=== PATIENT | male | born 1970 | race Caucasian/White ===

== ENCOUNTER 2025-03-18 09:38 | Inpatient (IN) | payer OTHER, SELFPAY ==
[2025-03-18] VITALS (22 sets, daily range): BP systolic 95–157; BP diastolic 52–94; PULSE 60–99; RESP 11–20; TEMP 36.6–37.4; O2SAT 92–100; BMI 39.2
--- NOTE | ~2025-03-18 | CT_ITS ---
CT of the Abdomen and Pelvis: Indication: Abdominal pain, history of Crohn's disease Technique: 2.5 mm axial scans were obtained through the abdomen and pelvis following intravenous adm inistration of 100 cc of Omnipaque 350. Dose reduction technique was used on this scan by utilizing a utomated exposure control and iterative reconstruction technique. The dose-length product (DLP) was 1 277.72 mGy-cm. Findings: Scans through the lung bases are unremarkable. The liver, spleen, pancreas, gallbladder, adrenals and right kidney are within normal limits. 7 mm no nobstructing left renal stone present. No evidence of aortic aneurysm. No lymphadenopathy. There is apparent intussusception of the base of the appendix into the cecum. No definite acute infla mmatory changes otherwise. No abscess or free air. There is apparent mild wall thickening of the intu ssuscepted appendix, and early appendicitis is a potential consideration. Images through the pelvis were performed. Urinary bladder unremarkable. No pelvic mass seen. No ascit es. Impression: Intussusception of the appendix into the base of the cecum. Suggestion of mild wall thickening of the intussuscepted appendix, and concomitant/superimposed early appendicitis is a potential consideratio n. 7 mm nonobstructing left renal stone. Reviewed, dictated and finalized at location . Impression: Intussusception of the appendix into the base of the cecum. Suggestion of mild wall thickening of the intussuscepted appendix, and concomitant/superimposed ea rly appendicitis is a potential consideration. 7 mm nonobstructing left renal stone.
[2025-03-18 10:56] LABS: Basophils Absolute Auto 0.1 K/mm3 (0.0-0.1); Basophils Percent Auto 0.4 % (0.2-1.2); Eosinophils Absolute Auto 0.3 K/mm3 (0-0.3); Eosinophils Percent Auto 2.1 % (0-4.4); Hematocrit 45.6 % (42.0-52.0); Hemoglobin 14.8 g/dL (14.0-18.0); Immature Granulocyte Absolute 0.08 K/mm3 (0.00-0.031); Immature Granulocyte Percent A 0.5 % (0-0.5); Lymphocytes Absolute Auto 1.88 K/mm3 (0.9-3.2); Mean Corpuscular HGB Conc 32.5 g/dl (32-36); Mean Corpuscular Hemoglobin 30.5 pg (26-34); Mean Platelet Volume 10.6 fl (7.4-10.4); Monocytes Absolute Auto 1.7 K/mm3 (0.1-0.6); Monocytes Percent Auto 10.5 % (2.6-8.5); Neutrophils Absolute Auto 11.7 K/mm3 (1.3-6.7); Neutrophils Percent Auto 74.5 % (45.5-73.1); Platelet Count Result 242 k/mm3 (150-375); Red Blood Count 4.85 M/mm3 (4.6-6.20); Red Cell Distribution Width 13.2 % (11.5-14.5); White Blood Count 15.7 K/mm3 (4.5-10.0)
[2025-03-18 10:59] LABS: Add Urine Microscopic? NO; Appearance Urine Clear (Clear); Bilirubin Urine Negative (Negative); Blood Urine Negative (Negative); Color Urine Yellow (Yellow); Glucose Urine UA Negative (Negative); Ketones Urine Negative (Negative); Leukocyte Esterase Ur Negative LEU/UL (Negative); Nitrate Urine Negative (Negative); Protein Urine Negative (Negative); Specific Grav Ur 1.021 (1.001-1.035); Urobilinogen Urine 0.2 mg/dL (<2.0)
[2025-03-18 11:05] LABS: Alanine Aminotransferase 26 U/L (6-50); Albumin Level 4.4 g/dL (3.5-5.1); Alkaline Phosphatase 69 U/L (38-126); Anion Gap 6 mmol/L (4-12); Aspartate Amino Transferase 30 U/L (17-59); Bilirubin,Total 0.7 mg/dL (0.2-1.3); Blood Urea Nitrogen 15 mg/dL (9-20); Carbon Dioxide 27 mmol/L (22-30); Chloride 107 mmol/L (98-107); Estimated CRCL calculation 100 ml/min; Estimated Glomerular Filt Rate > 60; Glucose 96 mg/dL (65-110); Lipase 94 U/L (23-300); Sodium 140 mmol/L (137-145)
--- OUTSIDE RECORDS SUMMARY | 2025-03-18 11:24 | XMS_ITS | Patient Health Record ---
Author Organization [facility] Kylie es Billing Info Address [address] [place], [place] [address] Support Name Relationship Address Phone Derrek Dior Guarantor Unknown [phone] Reason For Referral No Information Plan Of Treatment No Information Insurance Providers Payer Name Payer Address Payer Phone Subscriber Number Group Number Insured Name Patient Relationship to Insured Coverage Start Date Coverage End Date [employer] NON HMO [address] [place], [place] [id number] Derrek Dior Self - patient is the insured 7 7 [employer] NON HMO [address] [address] [place], [place] [id number] Derrek Dior Self - patient is the insured 7 7
--- NOTE | 2025-03-18 12:36 | ED_ITS ---
HPI - Abdominal Pain General Chief Complaint: Abdominal Pain <SUNSHINE Wooten Last Filed: 03/18/25 15:42> Stated Complaint: abd pain <SUNSHINE Wooten Last Filed: 03/18/25 15:42> Time Seen by Provider: 03/18/25 10:51 <SUNSHINE Wooten Last Filed: 03/18/25 15:42> Source: patient <SUNSHINE Wooten Last Filed: 03/18/25 15:42> Mode of arrival: ambulatory <SUNSHINE Wooten Filed: 03/18/25 15:42> Limitations: no limitations <SUNSHINE Wooten Last Filed: 03/18/25 15:42> History of Present Illness HPI narrative: Patient is a 54-year-old male who presents the ED with report of abdominal pain. Patient reports he woke up this morning with mid to upper abdominal pain. States pain was intermittent, but fairly severe this morning. Thought he needed to have a bowel movement, and was able to have a bowel movement, which was normal. Denies rectal bleeding or melena. Pain persisted throughout the day today. He notes history of Crohn's disease and contacted his doctor and was referred to the ED for further evaluation. He is not currently on any medication for his Crohns, states it is typically well controlled. He does mention his doctor previously thought there may be something abnormal with his appendix and was referred for an outpatient CT scan. Patient reports some intermittent nausea, denies vomiting. Denies fevers. Denies history of similar pain. Has not taken anything for pain. Denies chest pain or shortness of breath. Patient is currently visiting from [facility]. <SUNSHINE Wooten Last Filed: 03/18/25 15:42> Related Data Home Medications: Home Medications ?Medication ?Instructions ?Recorded ?Confirmed ?Last Taken ?Type lisinopril 20 mg tablet 20 mg PO HS 03/18/25 03/18/25 03/17/25 History <SUNSHINE Wooten Last Filed: 03/18/25 15:42> Allergies/Adverse Reactions: Allergies Allergy/AdvReac Type Severity Reaction Status Date / Time Penicillins Allergy Severe Anaphylaxis Verified 03/18/25 15:39 <Amanda Valentino PA-C - Last Filed: 03/18/25 15:42> Review of Systems 2 Review of Systems: All systems reviewed & are unremarkable except as noted in HPI. <Amanda Valentino PA-C - Last Filed: 03/18/25 15:42> All systems reviewed & are unremarkable except as noted in HPI and below < Amanda Valentino PA-C - Last Filed: 03/18/25 15:42> [facility] Past Medical History Medical History: Medical History (Updated 03/18/25 @ 16:13 by Jonathan Mcdonald MD) HTN (hypertension) Obesity History of Crohn's disease <Amanda Valentino PA-C - Last Filed: 03/18/25 15:42> Surgical History Surgical History: Surgical History History of colonoscopy With polypectomy. Most recent colonoscopy in January of 2025 in [place]. <Amanda Valentino PA-C - Last Filed: 03/18/25 15:42> Social History Social History: Social History Smoking status: Current some day smoker Tobacco type: cigars Alcohol intake: current Drinks per week: 3 Substance use: never Do You Feel Safe in your Home?: Yes Lack of Transportation: No Lack of Food: Never True Current Housing: I Have Housing Concerned About Future Housing: No Difficulty Paying Gas/Electric Bills: No Difficulty Paying for Meds: No Currently Unemployed: No Education: High School Diploma/GED Difficulty w/ Childcare or Family Care: No Spiritual care concerns: No <SUNSHINE Wooten Last Filed: 03/18/25 15:42> Exam 2 Narrative: GENERAL: Well appearing, obese with BMI of 39.2, non-toxic, in no acute distress. HEAD: Normocephalic, atraumatic. RESPIRATORY: Airway patent, respirations nonlabored. Clear to auscultation bilaterally, no rales, rhonchi, wheezing. CARDIOVASCULAR: Regular rate and rhythm without murmurs, rubs, or gallops. ABDOMINAL: Soft, mild tenderness palpation periumbilical region, epigastric region, right lower quadrant, nondistended. Normoactive BS. MUSCULOSKELETAL: Moves all extremities. No gross deformities. SKIN: Warm, dry, normal color. NEURO: A&O X3. Speech clear. PSYCHIATRIC: Appropriate mood and affect. Normal interaction. <Amanda Valentino PA-C - Last Filed: 03/18/25 15:42> Course LABORER/GRADE CHECK/PA Physician Supervision This visit was performed by both a physician and an APC. I performed all aspects of the MDM as documented. <Zheng Forte MD - Last Filed: 03/18/25 22:16> Vital Signs Vital signs: Vital Signs Temperature 97.8 F 03/18/25 09:44 Pulse Rate 86 03/18/25 09:44 Respiratory Rate 15 03/18/25 09:44 Blood Pressure 157/87 H 03/18/25 09:44 Pulse Oximetry 99 03/18/25 09:44 Oxygen Delivery Room Air 03/18/25 09:44 Temperature 97.9 F 03/18/25 21:47 Pulse Rate 64 03/18/25 21:47 Respiratory Rate 20 03/18/25 21:47 Blood Pressure 115/58 L 03/18/25 21:47 Pulse Oximetry 100 03/18/25 21:47 Oxygen Delivery Nasal Cannula 03/18/25 20:35 Oxygen Flow Rate 3 03/18/25 20:35 <Amanda Valentino PA-C - Last Filed: 03/18/25 15:42> Vital Signs Temperature 97.8 F 03/18/25 09:44 Pulse Rate 86 03/18/25 09:44 Respiratory Rate 15 03/18/25 09:44 Blood Pressure 157/87 H 03/18/25 09:44 Pulse Oximetry 99 03/18/25 09:44 Oxygen Delivery Room Air 03/18/25 09:44 Temperature 97.9 F 03/18/25 21:47 Pulse Rate 64 03/18/25 21:47 Respiratory Rate 20 03/18/25 21:47 Blood Pressure 115/58 L 03/18/25 21:47 Pulse Oximetry 100 03/18/25 21:47 Oxygen Delivery Nasal Cannula 03/18/25 20:35 Oxygen Flow Rate 3 03/18/25 20:35 <Zheng Forte MD - Last Filed: 03/18/25 22:16> MDM - Abdominal Pain MDM Narrative Medical decision making narrative: Patient presented to ED with mid to upper abdominal pain that began this morning. History of Crohn's disease. Vital signs are stable upon arrival. Patient in no acute distress. He did not want anything for pain after my initial evaluation. CBC with white blood cell count of 15.7. Neutrophil predominance. No bandemia. CMP is unremarkable. Normal electrolytes, kidney function, liver function. UA is clear. CT scan of abdomen/pelvis was obtained and showing intussusception of appendix into cecum. Possibly concomitant superimposed early appendicitis. Discussed case with Dr. Arriola, general surgery, advised will likely need appendectomy. Will have Lindsay LABORER/GRADE CHECK come down to see patient, likely surgery this afternoon. Keep NPO. Lindsay in ED to see patient. Patient to go to the OR. He is in agreement this plan. I did reach out to patient's GI specialist in [place], Dr. Randall, spoke to office, advised up patient's care plan. Patient given fluids, cefepime, Flagyl in the ED. <Amanda Valentino PA-C - Last Filed: 03/18/25 15:42> Medical Records Attestation: I reviewed the patient's medical records. <Amanda Valentino PA-C - Last Filed: 03/18/25 15:42> Lab Data Attestation: I reviewed the patient's lab results. <Amanda Valentino PA-C - Last Filed: 03/18/25 15:42> Result diagrams: 03/18/25 10:42 03/18/25 10:42 <SUNSHINE Wooten Last Filed: 03/18/25 15:42> Labs: Lab Results 03/18/25 Range/Units 10:42 WBC 15.7 H (4.5-10.0) K/mm3 RBC 4.85 (4.6-6.20) M/mm3 Hgb 14.8 (14.0-18.0) g/dL Hct 45.6 (42.0-52.0) % MCV 94.0 (80-100) fl MCH 30.5 (26-34) pg MCHC 32.5 (32-36) g/dl RDW 13.2 (11.5-14.5) % Plt Count 242 (150-375) k/mm3 MPV 10.6 H (7.4-10.4) fl Immature Gran % (Auto) 0.5 (0-0.5) % Neut % (Auto) 74.5 H (45.5-73.1) % Lymph % (Auto) 12.0 L (18.3-44.2) % [place] % (Auto) 10.5 H (2.6-8.5) % Eos % (Auto) 2.1 (0-4.4) % Baso % (Auto) 0.4 (0.2-1.2) % Lymph # (Auto) 1.88 (0.9-3.2) K/mm3 [place] # (Auto) 1.7 H (0.1-0.6) K/mm3 Eos # (Auto) 0.3 (0-0.3) K/mm3 Baso # (Auto) 0.1 (0.0-0.1) K/mm3 Abs Immat Gran (auto) 0.08 H (0.00-0.031) K/mm3 Absolute Neuts (auto) 11.7 H (1.3-6.7) K/mm3 Absolute Nucleated RBC 0.000 (0.0-0.012) K/mm3 Nucleated RBC % 0.0 (0.0-0.2) % Sodium 140 (137-145) mmol/L Potassium 4.0 (3.4-5.0) mmol/L Chloride 107 (98-107) mmol/L Carbon Dioxide 27 (22-30) mmol/L Anion Gap 6 (4-12) mmol/L BUN 15 (9-20) mg/dL Creatinine 0.98 (0.7-1.3) mg/dL Estim Creat Clear Calc 100 ml/min Estimated GFR > 60 (59 - ) Glucose 96 (65-110) mg/dL Calcium 9.0 (8.4-10.2) mg/dL Total Bilirubin 0.7 (0.2-1.3) mg/dL AST 30 (17-59) U/L ALT 26 (6-50) U/L Alkaline Phosphatase 69 (38-126) U/L Total Protein 8.0 (6.3-8.2) g/dL Albumin 4.4 (3.5-5.1) g/dL Lipase 94 (23-300) U/L Urine Color Yellow (Yellow) Urine Appearance Clear (Clear) Urine pH 8.0 (5.0-9.0) Ur Specific [place] 1.021 (1.001-1.035) Urine Protein Negative (Negative) mg/dL Urine Glucose (UA) Negative (Negative) mg/dL Urine Ketones Negative (Negative) mg/dL Ur Blood (Man) Negative (Negative) Urine Nitrate Negative (Negative) Urine Bilirubin Negative (Negative) Urine Urobilinogen 0.2 (<2.0) mg/dL Leukocyte Esterase Rfl Negative (Negative) HANNAH/UL <Amanda Valentino PA-C - Last Filed: 03/18/25 15:42> Lab Results 03/18/25 Range/Units 10:42 WBC 15.7 H (4.5-10.0) K/mm3 RBC 4.85 (4.6-6.20) M/mm3 Hgb 14.8 (14.0-18.0) g/dL Hct 45.6 (42.0-52.0) % MCV 94.0 (80-100) fl MCH 30.5 (26-34) pg MCHC 32.5 (32-36) g/dl RDW 13.2 (11.5-14.5) % Plt Count 242 (150-375) k/mm3 MPV 10.6 H (7.4-10.4) fl Immature Gran % (Auto) 0.5 (0-0.5) % Neut % (Auto) 74.5 H (45.5-73.1) % Lymph % (Auto) 12.0 L (18.3-44.2) % [place] % (Auto) 10.5 H (2.6-8.5) % Eos % (Auto) 2.1 (0-4.4) % Baso % (Auto) 0.4 (0.2-1.2) % Lymph # (Auto) 1.88 (0.9-3.2) K/mm3 [place] # (Auto) 1.7 H (0.1-0.6) K/mm3 Eos # (Auto) 0.3 (0-0.3) K/mm3 Baso # (Auto) 0.1 (0.0-0.1) K/mm3 Abs Immat Gran (auto) 0.08 H (0.00-0.031) K/mm3 Absolute Neuts (auto) 11.7 H (1.3-6.7) K/mm3 Absolute Nucleated RBC 0.000 (0.0-0.012) K/mm3 Nucleated RBC % 0.0 (0.0-0.2) % Sodium 140 (137-145) mmol/L Potassium 4.0 (3.4-5.0) mmol/L Chloride 107 (98-107) mmol/L Carbon Dioxide 27 (22-30) mmol/L Anion Gap 6 (4-12) mmol/L BUN 15 (9-20) mg/dL Creatinine 0.98 (0.7-1.3) mg/dL Estim Creat Clear Calc 100 ml/min Estimated GFR > 60 (59 - ) Glucose 96 (65-110) mg/dL Calcium 9.0 (8.4-10.2) mg/dL Total Bilirubin 0.7 (0.2-1.3) mg/dL AST 30 (17-59) U/L ALT 26 (6-50) U/L Alkaline Phosphatase 69 (38-126) U/L Total Protein 8.0 (6.3-8.2) g/dL Albumin 4.4 (3.5-5.1) g/dL Lipase 94 (23-300) U/L Urine Color Yellow (Yellow) Urine Appearance Clear (Clear) Urine pH 8.0 (5.0-9.0) Ur Specific [place] 1.021 (1.001-1.035) Urine Protein Negative (Negative) mg/dL Urine Glucose (UA) Negative (Negative) mg/dL Urine Ketones Negative (Negative) mg/dL Ur Blood (Man) Negative (Negative) Urine Nitrate Negative (Negative) Urine Bilirubin Negative (Negative) Urine Urobilinogen 0.2 (<2.0) mg/dL Leukocyte Esterase Rfl Negative (Negative) HANNAH/UL <Zheng Forte MD - Last Filed: 03/18/25 22:16> Imaging Data Attestation: I personally reviewed and interpreted this imaging study as follows: < Amanda Valentino PA-C - Last Filed: 03/18/25 15:42> Radiologist's impression: ITS Impressions Abdomen/Pelvis CT 03/18/25 13:02 Impression: Intussusception of the appendix into the base of the cecum. Suggestion of mild wall thickening of the intussuscepted appendix, and concomitant/superimposed early appendicitis is a potential consideration. 7 mm nonobstructing left renal stone. <Amanda Valentino PA-C - Last Filed: 03/18/25 15:42> ITS Impressions Abdomen/Pelvis CT 03/18/25 13:02 Impression: Intussusception of the appendix into the base of the cecum. Suggestion of mild wall thickening of the intussuscepted appendix, and concomitant/superimposed early appendicitis is a potential consideration. 7 mm nonobstructing left renal stone. <Zheng Forte MD - Last Filed: 03/18/25 22:16> Discharge Plan Discharge Clinical Impression: Intussusception of appendix, History of Crohn's disease Acute appendicitis Qualifiers: Acute appendicitis type: with localized peritonitis Appendicitis gangrene presence: without gangrene Appendicitis perforation presence: without perforation Appendicitis abscess presence: without abscess Qualified Code(s): K 35.30 - Acute appendicitis with localized peritonitis, without perforation or gangrene <SUNSHINE Wooten Last Filed: 03/18/25 15:42> Patient Disposition: Still a Patient <SUNSHINE Wooten Last Filed: 03/18/25 15:42> Condition: Stable <Amanda Valentino PA-C - Last Filed: 03/18/25 15:42>
--- NOTE | 2025-03-18 14:37 | PC.NURSE ---
per EDP no blood cultures are needed
[2025-03-18] MEDS: SODIUM CHLORIDE 0.9% IV 1,000 ML 999 ML IV CONT (14:39)
[2025-03-18] MEDS: CEFEPIME 2 GM/NS 50 ML 2 GM/50 ML BAG IVPB (14:40)
--- NOTE | 2025-03-18 14:49 | PM.IMHP ---
H&P: HPI History of Present Illness Date/Time: 03/18/25 14:49 Chief Complaint: Upper abdominal pain Narrative: This is a 54-year-old male with history of Crohn's disease, who presented to the ED today with complaints of mid upper abdominal pain. He reports waking up this morning with the pain. He had a BM and there was no relief of his pain. He ate some oatmeal, which did not aggravate or alleviate his pain. The pain would come and go in waves. Bending over and movement of his torso would aggravate the pain, as well as hitting bumps on the way to the ER. He denies nausea, vomiting, diarrhea, fever, or chills. His pain migrated to the periumbilical area throughout the day. Due to his persistent pain, he came into the ED for evaluation. Workup in the ED showed WBC count of 15,[address] evidence of intussusception of the appendix into the base of the cecum, suggestion of mild wall thickening of the into suspected appendix and possible superimposed early appendicitis. He is now seen in the ED for surgical evaluation. To note the patient has a history of Crohn's disease, which has been treated in [facility] and [place]. He currently follows with a furniture repair technician in [place] and has had multiple colonoscopies in the past with the most recent being in January of 2025. He reports being told there was an abnormality of his appendix since 2019 and each colonoscopy they mention this to him. His colonoscopy last month, they recommended getting a CT scan of the abdomen and pelvis as an outpatient, but has not had time to get the scan as of yet. He travels for work and is actually in this location due to work, but resides in [facility]. No previous abdominal surgery. He is not currently on any medications for his Crohn's disease. He reports being in remission. Review of Systems Review of Systems: All systems reviewed & are unremarkable except as noted in HPI and below PMFSH Past Medical History Medical History History of Crohn's disease Surgical History Surgical History History of colonoscopy With polypectomy. Most recent colonoscopy in January of 2025 in [place]. Social History Social History Smoking status: Never smoker Alcohol intake: never Substance use: never Meds Home Medications and Allergies Allergies Allergy/AdvReac Type Severity Reaction Status Date / Time Penicillins Allergy Anaphylaxis Verified 03/18/25 09:48 Vital Signs Vital Signs - 24 hr 03/18/25 09:44 03/18/25 11:12 03/18/25 11:13 Temperature 97.8 F Pulse Rate 86 83 87 Respiratory Rate 15 18 20 Blood Pressure 157/87 H 138/87 138/87 Pulse Oximetry 99 100 98 Oxygen Delivery Room Air 03/18/25 11:31 03/18/25 12:01 03/18/25 12:31 Temperature Pulse Rate 76 84 79 Respiratory Rate 16 20 18 Blood Pressure 128/85 126/89 136/85 Pulse Oximetry 98 98 98 Oxygen Delivery 03/18/25 13:14 03/18/25 13:30 03/18/25 13:31 Temperature Pulse Rate 63 90 88 Respiratory Rate 15 18 20 Blood Pressure 142/84 H 135/94 H 135/94 H Pulse Oximetry 98 99 95 Oxygen Delivery 03/18/25 14:00 03/18/25 14:31 Temperature Pulse Rate 91 99 Respiratory Rate 17 19 Blood Pressure 144/89 H 140/89 Pulse Oximetry 99 98 Oxygen Delivery Exam Const: General: comfortable and no acute distress Nutritional Appearance: average body habitus Orientation/consciousness: patient oriented x3 HENMT: Head: normocephalic and atraumatic Ears: hearing grossly normal bilaterally Mouth: Yes moist mucous membranes Eyes: General: appearance normal, both eyes and all related structures Pupils: Equal, round and reactive pupils present Neck: Neck: normal visual inspection and full ROM Resp: Effort & Inspection: no respiratory distress Auscultation: clear to auscultation bilaterally Cardio: Rate: regular rate Rhythm: regular rhythm Peripheral pulses: Peripheral pulses 2+ throughout GI: Inspection: non-distended and no scars GI Palp: Yes Soft to palpation, Yes Tenderness to palpation present (GI) (Mild RLQ TTP, focally tender in mid upper abd/RUQ), Yes Guarding due to palpation present (GI) (voluntary guarding with palpation of mid upper abdomen), Yes No hepatosplenomegaly present, No Hernia present and No Rebound tenderness present Auscultation: normal bowel sounds Skin: General skin exam: normal color Neuro: General: moves all extremities and no focal motor deficits Speech: normal speech Motor exam (neuro): 5/5 motor strength present throughout Extrem: General: normal to inspection and no edema Psych: Mental Status: mental status grossly normal Attitude: cooperative Insight: Good insight present (Psych) Judgement: Good judgement present (Psych) H&P: Results Labs Labs: Short CBC 03/18/25 Range/Units 10:42 WBC 15.7 H (4.5-10.0) K/mm3 Hgb 14.8 (14.0-18.0) g/dL Hct 45.6 (42.0-52.0) % Plt Count 242 (150-375) k/mm3 BMP 03/18/25 10:42 Sodium 140 Potassium 4.0 Chloride 107 Carbon Dioxide 27 BUN 15 Creatinine 0.98 Glucose 96 Calcium 9.0 Liver Function 03/18/25 Range/Units 10:42 Total Bilirubin 0.7 (0.2-1.3) mg/dL AST 30 (17-59) U/L ALT 26 (6-50) U/L Alkaline Phosphatase 69 (38-126) U/L Albumin 4.4 (3.5-5.1) g/dL Urine 03/18/25 Range/Units 10:42 Urine Color Yellow (Yellow) Urine Appearance Clear (Clear) Urine pH 8.0 (5.0-9.0) Ur Specific [place] 1.021 (1.001-1.035) Urine Protein Negative (Negative) mg/dL Urine Glucose (UA) Negative (Negative) mg/dL Imaging CT scan - abdomen: Radiologist's impression: ITS Impressions Abdomen/Pelvis CT 03/18/25 13:02 Impression: Intussusception of the appendix into the base of the cecum. Suggestion of mild wall thickening of the intussuscepted appendix, and concomitant/superimposed early appendicitis is a potential consideration. 7 mm nonobstructing left renal stone. Assessment and Plan Assessment and plan (1) Intussusception of appendix: Code(s): K38.8 - Other specified diseases of appendix Status: Acute Assessment and Plan: CT scan of the abdomen and pelvis reviewed with Dr. Arriola. There appears to be an intussusception of the appendix, which is dilated with mild wall thickening, consistent with possible early acute appendicitis. He is more tender in the mid to right upper abdomen, but this correlates with the location of the appendix within the cecum on the CT scan. His WBC count is 15,000. We would recommend proceeding with a laparoscopic appendectomy, partial cecectomy by Dr. Arriola under general anesthesia. Description of the procedure, risks, benefits, alternatives, and expected recovery were discussed with the patient in detail. He agrees to proceed. Continue IV antibiotics, IV fluids, and will schedule for surgery today. (2) Acute appendicitis: Code(s): K35.80 - Unspecified acute appendicitis Status: Acute Plan I have discussed the patient's case and plan of care with Dr. Arriola.
[2025-03-18] MEDS: metroNIDAZOLE 500 MG/ISO 100ML 500 MG/100 ML BAG 100 MG IVPB (15:00)
--- NOTE | 2025-03-18 15:40 | WPDHPUPDATE1 ---
History and Physical Update Update Date/Time: 03/18/25 15:40 History and Physical has been reviewed, including an updated exam of the patient. There are NO changes in the patient's condition. Risks, benefits, and alternatives have been discussed and questions answered. Patient agrees to proceed with procedure.
[2025-03-18] MEDS: LACTATED RINGERS 1,000 ML 30 ML IV CONT ×2 (16:00→19:35)
--- NOTE | 2025-03-18 16:13 | WPDANESEPPF ---
Anes - Initial Pre Proc Eval Procedure: Operation Date: 03/18/25 16:30 Proposed Procedures p Laparoscopic Appendectomy - Greyson Arriola MD Date/Time: 03/18/25 16:13 Surgeon: Greyson Arriola MD Pre Op Diagnosis: abd pain Patient Data Age: 54 Gender: M Height: 1.75 m Weight: 120.5 kg Last Vital Signs Temp 37.4 C 03/18/25 15:35 Pulse 89 03/18/25 15:35 Resp 20 03/18/25 15:35 BP 135/91 H 03/18/25 15:35 Pulse Ox 99 03/18/25 15:35 O2 Del Method Room Air 03/18/25 15:35 Allergies Allergy/AdvReac Type Severity Reaction Status Date / Time Penicillins Allergy Severe Anaphylaxis Verified 03/18/25 15:39 Home Medications ?Medication ?Instructions ?Recorded ?Confirmed ?Type lisinopril 20 mg tablet 20 mg PO HS 03/18/25 03/18/25 History Laboratory Tests 03/18/25 10:42 WBC 15.7 H K/mm3 (4.5-10.0) RBC 4.85 M/mm3 (4.6-6.20) Hgb 14.8 g/dL (14.0-18.0) Hct 45.6 % (42.0-52.0) MCV 94.0 fl (80-100) MCH 30.5 pg (26-34) MCHC 32.5 g/dl (32-36) RDW 13.2 % (11.5-14.5) Plt Count 242 k/mm3 (150-375) MPV 10.6 H fl (7.4-10.4) Immature Gran % (Auto) 0.5 % (0-0.5) Neut % (Auto) 74.5 H % (45.5-73.1) Lymph % (Auto) 12.0 L % (18.3-44.2) [place] % (Auto) 10.5 H % (2.6-8.5) Eos % (Auto) 2.1 % (0-4.4) Baso % (Auto) 0.4 % (0.2-1.2) Lymph # (Auto) 1.88 K/mm3 (0.9-3.2) [place] # (Auto) 1.7 H K/mm3 (0.1-0.6) Eos # (Auto) 0.3 K/mm3 (0-0.3) Baso # (Auto) 0.1 K/mm3 (0.0-0.1) Abs Immat Gran (auto) 0.08 H K/mm3 (0.00-0.031) Absolute Neuts (auto) 11.7 H K/mm3 (1.3-6.7) Absolute Nucleated RBC 0.000 K/mm3 (0.0-0.012) Nucleated RBC % 0.0 % (0.0-0.2) Sodium 140 mmol/L (137-145) Potassium 4.0 mmol/L (3.4-5.0) Chloride 107 mmol/L (98-107) Carbon Dioxide 27 mmol/L (22-30) Anion Gap 6 mmol/L (4-12) BUN 15 mg/dL (9-20) Creatinine 0.98 mg/dL (0.7-1.3) Estim Creat Clear Calc 100 ml/min Estimated GFR > 60 (59 - ) Glucose 96 mg/dL (65-110) Calcium 9.0 mg/dL (8.4-10.2) Total Bilirubin 0.7 mg/dL (0.2-1.3) AST 30 U/L (17-59) ALT 26 U/L (6-50) Alkaline Phosphatase 69 U/L (38-126) Total Protein 8.0 g/dL (6.3-8.2) Albumin 4.4 g/dL (3.5-5.1) Lipase 94 U/L (23-300) Urine Color Yellow (Yellow) Urine Appearance Clear (Clear) Urine pH 8.0 (5.0-9.0) Ur Specific [place] 1.021 (1.001-1.035) Urine Protein Negative mg/dL (Negative) Urine Glucose (UA) Negative mg/dL (Negative) Urine Ketones Negative mg/dL (Negative) Ur Blood (Man) Negative (Negative) Urine Nitrate Negative (Negative) Urine Bilirubin Negative (Negative) Urine Urobilinogen 0.2 mg/dL (<2.0) Leukocyte Esterase Rfl Negative HANNAH/UL (Negative) Patient hx anesthesia problems: none Family hx anesthesia problems: none Results Review: All pre-operative results and documents have been reviewed as part of the pre-operative evaluation. [facility] Past Medical History Medical History (Updated 03/18/25 @ 16:13 by Jonathan Mcdonald MD) HTN (hypertension) Obesity History of Crohn's disease Surgical History Surgical History History of colonoscopy With polypectomy. Most recent colonoscopy in January of 2025 in [place]. Social History Social History Smoking status: Never smoker Alcohol intake: never Substance use: never Anes - Eval Final PreProcedure Day of Procedure 03/18/25 16:13 Patient weight: obese Heart: regular rate and rhythm Lungs: clear to auscultation Airway: Mallampati scale class II Neurological: alert and oriented Last oral intake: >/= 8 hours ASA classification: III Emergent: no Anesthetic plan: proceed Anesthesia type and monitoring: general ETT and standard monitoring Results Review: All pre-operative results and documents have been reviewed as part of the pre-operative evaluation. Informed Consent: The patient's anesthetic plan and its attendant risks and benefits were discussed with the patient/family/POA. Questions were solicited and answers provided to the satisfaction of the patient/family/POA.
[2025-03-18] MEDS: BUPIVACAINE/EPINEPHRINE 0.5% 50 ML VIAL 30 ML INFILTRATE (17:29)
--- NOTE | 2025-03-18 19:27 | P.OP_ITS ---
Procedure Note - Detailed Date of Procedure 03/18/25 Pre-op Diagnosis Appendiceal intussusception, malrotation Post-op Diagnosis Same Procedure Performed Attempted laparoscopic appendectomy, hand access laparoscopic partial cecectomy with appendectomy Surgeon Greyson Arriola MD Children'S Literature Professor Antony Bobby CERTIFIED DIETARY MANAGER Anesthesia General and Local Indications Patient lives near [facility]. He was in this area on business when he developed severe right lower quadrant abdominal pain and came to the emergency room. Evaluation there showed tenderness in the right lower quadrant and periumbilical with leukocytosis. CT scan showed the cecum to be in the right upper quadrant near the liver and an intussusception of the appendix in the cecum. Patient is taken to surgery at this time for appendectomy likely to also need at least partial cecal resection. Findings There was malrotation with the appendix and cecum being in the right upper quadrant. The appendix and the associated cecum were inflamed and somewhat edematous. Only the distal couple of cm of the appendix appeared normal. There were adhesions, more than expected, due to the malrotation. The appendiceal intussusception was not reducible. Resection of the entire appendix along with the associated cecum was performed. The initial laparoscopic appendectomy had to be converted to do hand and access laparoscopic partial cecectomy with appendectomy. Description of Procedure Patient was taken to surgery and induced into general anesthesia. The entire abdomen was prepped and draped. Initial trocar was placed in the left subcostal position. This was a an applied Medical optical trocar and a 5 mm camera was used. After we gained intraperitoneal position and insufflation, another 5 left-sided mid abdominal trocar was placed as well as a 10 11 trocar was placed in the left lower quadrant. We noted looked initially in the right lower quadrant for the cecum but it was not located there. Eventually we found the quite dilated proximal cecum in the right upper quadrant. There were numerous adhesions but eventually we read live visualize some of the appendix and the bulge in the cecum associated with the intussusception. Although we tried to mobilize the cecum and appendix, we were not able to do this laparoscopically even with the addition of another 10 11 port in the right upper quadrant. We then decided to proceed with hand access appendectomy with partial cecal resection. Local anesthetic was infiltrated in the midline just above the umbilicus. An incision was made here for the hand access port. We dissected down to the fascia and then used local anesthetic to anesthetize the fascia. The fascia was opened the length of the wound and then the peritoneal cavity was opened. The Harpal was placed and a GelPort was placed. We tried initially to use 1 of the existing ports for the camera but none of these allowed adequate visualization. A 5 mm right lower quadrant port was then placed which worked well. Finding the area of the intussusception, there were terminal ileal retroperitoneal adhesions due to the malrotation. These were taken down sharply and the distal ileum was mobilized. There were also additional adhesions associated with the cecum and these were taken down using cautery and sharp dissection. This mobilized the cecum pretty well. There was still additional adhesions associated with the appendix and some associated with the mesoappendix that had to be divided. Once the cecum appeared mobilized adequately, we stopped insufflation and removed the GelPort. I was able to eviscerate the cecum with the intussusception. The appendiceal mesentery had been divided laparoscopically. I then dissected a few more adhesions as the intussusception dumb was very near the ileocecal valve. Eventually, I had enough cecum mobilized that I could do a tangential resection to include the entire appendix. I used a TLC 75 stapler and placed it across the cecum, avoiding at the ileocecal valve area. A single firing was used. The appendix with the intussusceptum and a portion of cecum were removed. We inspected the staple line and the junction of the terminal ileum with the cecum. All looked good. We then placed the cecum back in the abdomen and replaced the GelPort. We insufflated again and laparoscopically reviewed the cecectomy staple line and the right upper quadrant. There was only a small collection of bloody ascites up near the liver. This was suctioned away. No evidence of bleeding from the dissection was seen. The staple line looked quite secure and in fact the cecum was folding over the staple line. There did not appear to be any compromise of the ileocecal junction. We then stopped insufflation and removed all the instruments. The GelPort and Harpal were removed. The hand access wound was closed with bidirectional running 0 PDS suture. 3-0 Vicryl suture were used to close the subcutaneous in interrupted fashion. 4-0 Vicryl subcuticular skin sutures were placed. The hand access incision as well as all the trocar sites were closed with subcuticular running 4-0 Monocryl skin suture. The wounds were dressed with Exofin surgical adhesive. The patient was awakened and taken to recovery in good condition. Sponge and needle counts were correct x2. Estimated Blood Loss -30 Drains No Packing No Pathology Yes (Cecectomy with appendiceal intussusception) Complications None Condition Stable Disposition PACU [facility] Billing Surgery - Charge Forward: Surgery Billing (Attempted laparoscopic appendectomy, hand access laparoscopic cecal resection with appendectomy)
[2025-03-18] MEDS: ONDANSETRON INJ 4 MG/2 ML VIAL IV PUSH (20:52)
--- NOTE | 2025-03-18 21:14 | ADMGEN ---
This patient, Derrek Dior, was admitted to Medical Room 246-. Patient/family oriented to hospital policies and general routines including ID bracelet, bed and alarms, visiting hours, pain management, procedures, bathroom and other care routines, personal items, smoking policy, room service/diet, and visiting hours. Information on how to activate the Rapid Response Team has been discussed. Patient/Family are encouraged to report perceived risks to care and to ask questions if they do not understand what they are told or what they should do.
[2025-03-18] MEDS: IBUPROFEN IV 800 MG/200 ML 800 MG/200 ML BAG 400 MG IVPB (21:43)
[2025-03-18] MEDS: LACTATED RINGERS 1,000 ML 100 ML IV CONT (22:15)
[2025-03-19] MEDS: HYDROcodone/acetaminophen (*CRX) 10-325 MG TABLET 1 TAB PO ×3 (02:04→14:05)
[2025-03-19 04:18] LABS: Hemoglobin 12.6 g/dL (14.0-18.0); Mean Corpuscular HGB Conc 33.2 g/dl (32-36); Mean Corpuscular Hemoglobin 31.3 pg (26-34); Mean Corpuscular Volume 94.5 fl (80-100); Mean Platelet Volume 11.1 fl (7.4-10.4); Platelet Count Result 199 k/mm3 (150-375); Red Blood Count 4.02 M/mm3 (4.6-6.20); Red Cell Distribution Width 13.3 % (11.5-14.5); White Blood Count 11.4 K/mm3 (4.5-10.0)
[2025-03-19 04:30] LABS: Anion Gap 9 mmol/L (4-12); Blood Urea Nitrogen 13 mg/dL (9-20); Calcium 8.2 mg/dL (8.4-10.2); Carbon Dioxide 23 mmol/L (22-30); Chloride 106 mmol/L (98-107); Estimated CRCL calculation 100 ml/min; Estimated Glomerular Filt Rate > 60; Glucose 143 mg/dL (65-110); Potassium 3.9 mmol/L (3.4-5.0); Sodium 138 mmol/L (137-145)
[2025-03-19 04:38] VITALS: BP 103/54; PULSE 55; RESP 20; TEMP 36.6; O2SAT 94
[2025-03-19 04:40] VITALS: BP 103/54; PULSE 55; RESP 20; TEMP 36.6; O2SAT 94
[2025-03-19] MEDS: ENOXAPARIN 40 MG/0.4 ML SYRINGE SUB-Q (09:13)
[2025-03-19] MEDS: IBUPROFEN IV 800 MG/200 ML 800 MG/200 ML BAG 400 MG IVPB ×2 (09:14→17:32)
--- OUTSIDE RECORDS SUMMARY | 2025-03-19 09:49 | XMS_ITS | Patient Health Record ---
Author Organization [facility] Kylie es Billing Info Address [address] [place], [place] [address] Support Name Relationship Address Phone Derrek Dior Guarantor Unknown [phone] Reason For Referral No Information Plan Of Treatment No Information Insurance Providers Payer Name Payer Address Payer Phone Subscriber Number Group Number Insured Name Patient Relationship to Insured Coverage Start Date Coverage End Date [employer] NON HMO [address] [place], [place] [id number] Derrek Dior Self - patient is the insured 7 7 [employer] NON HMO [address] [address] [place], [place] [id number] Derrek Dior Self - patient is the insured 7 7
[2025-03-19 10:22] VITALS: BP 112/60; PULSE 56; RESP 18; TEMP 36.3; O2SAT 98
[2025-03-19] MEDS: LACTATED RINGERS 1,000 ML 100 ML IV CONT (12:00)
--- NOTE | 2025-03-19 12:05 | PM.PNGS ---
Progress Note: A&P Assessment and Plan (1) Intussusception of appendix: Code(s): K38.8 - Other specified diseases of appendix Status: Acute Assessment and Plan: Doing well postop day 1. Status post hand access laparoscopic partial cecectomy with intussusception of appendix. No bowel sounds and no appetite. Will continue on full liquids today. Ambulate and continue analgesics. Should improve in another 1-2 days. Patient does live 2[place]/2 hours from here, near [facility]. is here with him and will be driving him home. Subjective Subjective Date/Time Seen: 03/19/25 12:05 Post Op day: 1 Patient reports: still having pain, voiding w/o difficulty, no flatus, no bowel movement and afebrile Interval history: Still pretty sore today, has very little appetite. Has been up walking in room. Exam Const: General: cooperative, comfortable, alert, awake and obese Orientation/consciousness: patient oriented x3 GI: Inspection: no abdominal wall ecchymosis, incision (Dry and healing well) and obesity GI Palp: Yes abdominal tenderness (Diffuse but particularly around hand access incision), Yes Soft to palpation, No Hernia present and No Palpable mass present Auscultation: absent bowel sounds Objective Data Vital Signs Vital Signs: Vital Signs - 24 hr 03/18/25 12:31 03/18/25 13:14 03/18/25 13:30 Temperature Pulse Rate 79 63 90 Respiratory Rate 18 15 18 Blood Pressure 136/85 142/84 H 135/94 H Pulse Oximetry 98 98 99 Oxygen Delivery Oxygen Flow Rate 03/18/25 13:31 03/18/25 14:00 03/18/25 14:31 Temperature Pulse Rate 88 91 99 Respiratory Rate 20 17 19 Blood Pressure 135/94 H 144/89 H 140/89 Pulse Oximetry 95 99 98 Oxygen Delivery Oxygen Flow Rate 03/18/25 15:35 03/18/25 19:35 03/18/25 19:50 Temperature 37.4 C 36.6 C Pulse Rate 89 93 81 Respiratory Rate 20 16 14 Blood Pressure 135/91 H 135/81 123/70 Pulse Oximetry 99 100 100 Oxygen Delivery Room Air Simple Face Mask Simple Face Mask Oxygen Flow Rate 8 8 03/18/25 20:05 03/18/25 20:20 03/18/25 20:35 Temperature Pulse Rate 76 72 81 Respiratory Rate 11 L 14 14 Blood Pressure 124/73 131/76 123/75 Pulse Oximetry 94 92 94 Oxygen Delivery Nasal Cannula Nasal Cannula Nasal Cannula Oxygen Flow Rate 2 3 3 03/18/25 21:22 03/18/25 21:46 03/18/25 21:47 Temperature 36.6 C 36.6 C 36.6 C Pulse Rate 64 64 64 Respiratory Rate 20 20 20 Blood Pressure 115/58 L 115/58 L 115/58 L Pulse Oximetry 100 100 100 Oxygen Delivery Oxygen Flow Rate 03/18/25 22:00 03/18/25 23:53 03/19/25 04:38 Temperature 36.7 C 36.7 C 36.6 C Pulse Rate 60 65 55 L Respiratory Rate 20 20 20 Blood Pressure 95/52 L 114/64 103/54 L Pulse Oximetry 97 93 94 Oxygen Delivery Oxygen Flow Rate 03/19/25 04:40 03/19/25 10:22 Temperature 36.6 C 36.3 C L Pulse Rate 55 L 56 L Respiratory Rate 20 18 Blood Pressure 103/54 L 112/60 Pulse Oximetry 94 98 Oxygen Delivery Oxygen Flow Rate Intake/Output Intake/Output: Intake & Output 03/16/25 03/17/25 03/18/25 03/19/25 23:59 23:59 23:59 23:59 Intake Total 1100 730 Output Total 50 500 Balance 1050 230 Meds/Results Medications: Active Medications Generic Name Dose Route Start Last Admin Trade Name Freq PRN Reason Stop Dose Admin Acetaminophen 500 mg 03/18/25 20:37 Acetaminophen 500 Mg Tablet PO Q6H PRN Pain Rated 1-3 Hydrocodone Bitart/Acetaminophen 1 tab 03/18/25 20:37 03/19/25 09:26 Hydrocodone/Acetaminophen (*Crx) 10-325 Mg Tablet PO 1 tab Q4H PRN Administration Pain Rated 7-10 Enoxaparin Sodium 40 mg 03/19/25 09:00 03/19/25 09:13 Enoxaparin 40 Mg/0.4 Ml Syringe SUB-Q 40 mg DAILY ABDIRASHID Administration Hydromorphone HCl 1 mg 03/18/25 20:51 Hydromorphone Hcl Inj (*Crx) 2 Mg/Ml Vial IV PUSH Q2H PRN Breakthrough Pain Rated 7-10 or NPO Hydromorphone HCl 0.5 mg 03/18/25 20:51 Hydromorphone Hcl Inj (*Crx) 2 Mg/Ml Vial IV PUSH Q2H PRN Breakthrough Pain Rated 4-6 or NPO Lactated Ringer's 1,000 mls @ 100 mls/hr 03/18/25 20:37 03/18/25 22:15 Lr - Lactated Ringers Iv IV CONT 100 mls/hr .Q10H ABDIRASHID Administration Ibuprofen 800 mg in 200 mls @ 400 mls/hr 03/18/25 20:37 03/19/25 09:14 Caldolor 800 Mg/200 Ml IVPB 400 mls/hr Q6H PRN Administration Breakthrough Pain Rated 1-3 or NPO Lisinopril 20 mg 03/18/25 21:00 03/18/25 21:54 Lisinopril 20 Mg Tablet PO Not Given HS ABDIRASHID Naloxone HCl 0.1 mg 03/18/25 20:37 Naloxone Hcl 0.4 Mg/Ml Vial IV PUSH Q2M PRN Opiate Reversal Ondansetron HCl 4 mg 03/18/25 20:37 03/18/25 20:52 Ondansetron Inj 4 Mg/2 Ml Vial IV PUSH 4 mg Q4H PRN Administration Nausea And Vomiting Oxycodone/Acetaminophen 1 tablet 03/18/25 20:37 Oxycodone/Acetaminophen (*Crx) 5-325 Mg Tablet PO Q4H PRN Pain Rated 4-6 Radiology Results: ITS Impressions Abdomen/Pelvis CT 03/18/25 13:02 Impression: Intussusception of the appendix into the base of the cecum. Suggestion of mild wall thickening of the intussuscepted appendix, and concomitant/superimposed early appendicitis is a potential consideration. 7 mm nonobstructing left renal stone. Labs Labs: Laboratory Results - last 24 hr 03/19/25 03:54 WBC 11.4 H RBC 4.02 L Hgb 12.6 L Hct 38.0 L MCV 94.5 MCH 31.3 MCHC 33.2 RDW 13.3 Plt Count 199 MPV 11.1 H Sodium 138 Potassium 3.9 Chloride 106 Carbon Dioxide 23 Anion Gap 9 BUN 13 Creatinine 0.98 Estim Creat Clear Calc 100 Estimated GFR > 60 Glucose 143 H Calcium 8.2 L
[2025-03-19] MEDS: ONDANSETRON INJ 4 MG/2 ML VIAL IV PUSH (17:32)
[2025-03-19 18:22] VITALS: BP 119/71; PULSE 52; RESP 17; TEMP 36.8; O2SAT 99
[2025-03-19 21:20] VITALS: PULSE 68
[2025-03-19] MEDS: FAMOTIDINE 20 MG TABLET PO (21:20)
[2025-03-19] MEDS: lisinopriL 20 MG TABLET PO (21:22)
[2025-03-19 22:22] VITALS: BP 144/84; PULSE 59; RESP 16; TEMP 36.3; O2SAT 100
[2025-03-20] MEDS: IBUPROFEN IV 800 MG/200 ML 800 MG/200 ML BAG 400 MG IVPB (00:16)
[2025-03-20] MEDS: LACTATED RINGERS 1,000 ML 100 ML IV CONT (00:17)
[2025-03-20 03:56] VITALS: BP 141/77; PULSE 50; RESP 17; TEMP 36.4; O2SAT 100
[2025-03-20 04:58] LABS: Hematocrit 37.7 % (42.0-52.0); Hemoglobin 12.1 g/dL (14.0-18.0); Mean Corpuscular HGB Conc 32.1 g/dl (32-36); Mean Corpuscular Hemoglobin 31.1 pg (26-34); Mean Corpuscular Volume 96.9 fl (80-100); Mean Platelet Volume 11.2 fl (7.4-10.4); Platelet Count Result 182 k/mm3 (150-375); Red Blood Count 3.89 M/mm3 (4.6-6.20); Red Cell Distribution Width 13.3 % (11.5-14.5); White Blood Count 8.1 K/mm3 (4.5-10.0)
[2025-03-20 05:14] LABS: Anion Gap 6 mmol/L (4-12); Blood Urea Nitrogen 12 mg/dL (9-20); Calcium 8.2 mg/dL (8.4-10.2); Carbon Dioxide 27 mmol/L (22-30); Chloride 104 mmol/L (98-107); Estimated CRCL calculation 115 ml/min; Estimated Glomerular Filt Rate > 60; Glucose 81 mg/dL (65-110); Potassium 3.5 mmol/L (3.4-5.0); Sodium 137 mmol/L (137-145)
[2025-03-20] MEDS: ENOXAPARIN 40 MG/0.4 ML SYRINGE SUB-Q (08:22)
[2025-03-20] MEDS: FAMOTIDINE 20 MG TABLET PO ×2 (08:22→20:20)
--- NOTE | 2025-03-20 10:06 | P.PNGS_ITS ---
Progress Note: A&P Assessment and Plan (1) Acute appendicitis: Qualifiers: Acute appendicitis type: with localized peritonitis Appendicitis abscess presence: without abscess Appendicitis gangrene presence: without gangrene Appendicitis perforation presence: without perforation Qualified Code(s): K35.30 - Acute appendicitis with localized peritonitis, without perforation or gangrene Code(s): K35.80 - Unspecified acute appendicitis Status: Acute Assessment and Plan: * Advance to soft regular diet. Increase activity. Await return of bowel function. * Possibly home tomorrow if improving. (2) Intussusception of appendix: Code(s): K38.8 - Other specified diseases of appendix Status: Acute Subjective Subjective Date/Time Seen: 03/20/25 10:06 Interval history: Tolerating full liquids. Passing flatus. Pain controlled. Ambulating without difficulty. Exam GI: Inspection: non-distended and incision (intact with glue) GI Palp: Yes Soft to palpation and Yes Tenderness to palpation present (GI) (incisional) Auscultation: normal bowel sounds Objective Data Vital Signs Vital Signs: Vital Signs - 24 hr 03/19/25 10:22 03/19/25 18:22 03/19/25 20:00 Temperature 97.4 F L 98.2 F Pulse Rate 56 L 52 L Respiratory Rate 18 17 Blood Pressure 112/60 119/71 Pulse Oximetry 98 99 Oxygen Delivery Room Air 03/19/25 21:20 03/19/25 22:22 03/20/25 03:56 Temperature 97.4 F L 97.6 F Pulse Rate 68 59 L 50 L Respiratory Rate 16 17 Blood Pressure 144/84 H 141/77 H Pulse Oximetry 100 100 Oxygen Delivery Intake/Output Intake/Output: Intake & Output 03/17/25 03/18/25 03/19/25 03/20/25 23:59 23:59 23:59 23:59 Intake Total 1100 3810 600 Output Total 50 500 Balance 1050 3310 600 Meds/Results Medications: Active Medications Generic Name Dose Route Start Last Admin Trade Name Freq PRN Reason Stop Dose Admin Acetaminophen 500 mg 03/18/25 20:37 Acetaminophen 500 Mg Tablet PO Q6H PRN Pain Rated 1-3 Hydrocodone Bitart/Acetaminophen 1 tab 03/18/25 20:37 03/19/25 14:05 Hydrocodone/Acetaminophen (*Crx) 10-325 Mg Tablet PO 1 tab Q4H PRN Administration Pain Rated 7-10 Enoxaparin Sodium 40 mg 03/19/25 09:00 03/20/25 08:22 Enoxaparin 40 Mg/0.4 Ml Syringe SUB-Q 40 mg DAILY ABDIRASHID Administration Famotidine 20 mg 03/19/25 21:00 03/20/25 08:22 Famotidine 20 Mg Tablet PO 20 mg Q12HR ABDIRASHID Administration Hydromorphone HCl 1 mg 03/18/25 20:51 Hydromorphone Hcl Inj (*Crx) 2 Mg/Ml Vial IV PUSH Q2H PRN Breakthrough Pain Rated 7-10 or NPO Hydromorphone HCl 0.5 mg 03/18/25 20:51 Hydromorphone Hcl Inj (*Crx) 2 Mg/Ml Vial IV PUSH Q2H PRN Breakthrough Pain Rated 4-6 or NPO Ibuprofen 800 mg in 200 mls @ 400 mls/hr 03/18/25 20:37 03/20/25 00:46 Caldolor 800 Mg/200 Ml IVPB Infused Q6H PRN Infusion Breakthrough Pain Rated 1-3 or NPO Lisinopril 20 mg 03/18/25 21:00 03/19/25 21:22 Lisinopril 20 Mg Tablet PO 20 mg HS ABDIRASHID Administration Naloxone HCl 0.1 mg 03/18/25 20:37 Naloxone Hcl 0.4 Mg/Ml Vial IV PUSH Q2M PRN Opiate Reversal Ondansetron HCl 4 mg 03/18/25 20:37 03/19/25 17:32 Ondansetron Inj 4 Mg/2 Ml Vial IV PUSH 4 mg Q4H PRN Administration Nausea And Vomiting Oxycodone/Acetaminophen 1 tablet 03/18/25 20:37 Oxycodone/Acetaminophen (*Crx) 5-325 Mg Tablet PO Q4H PRN Pain Rated 4-6 Radiology Results: ITS Impressions Abdomen/Pelvis CT 03/18/25 13:02 Impression: Intussusception of the appendix into the base of the cecum. Suggestion of mild wall thickening of the intussuscepted appendix, and concomitant/superimposed early appendicitis is a potential consideration. 7 mm nonobstructing left renal stone. Labs Labs: Laboratory Results - last 24 hr 03/20/25 04:23 WBC 8.1 RBC 3.89 L Hgb 12.1 L Hct 37.7 L MCV 96.9 MCH 31.1 MCHC 32.1 RDW 13.3 Plt Count 182 MPV 11.2 H Sodium 137 Potassium 3.5 Chloride 104 Carbon Dioxide 27 Anion Gap 6 BUN 12 Creatinine 0.84 Estim Creat Clear Calc 115 Estimated GFR > 60 Glucose 81 Calcium 8.2 L
[2025-03-20 11:54] VITALS: O2SAT 96
[2025-03-20] MEDS: HYDROcodone/acetaminophen (*CRX) 10-325 MG TABLET 1 TAB PO (13:22)
[2025-03-20 17:16] VITALS: BP 145/88; PULSE 61; RESP 18; TEMP 36.9; O2SAT 100
[2025-03-20] MEDS: lisinopriL 20 MG TABLET PO (20:20)
[2025-03-20 20:56] VITALS: BP 137/82; PULSE 68; RESP 16; TEMP 36.4; O2SAT 97
[2025-03-20 21:39] VITALS: O2SAT 97
[2025-03-21 05:20] LABS: Hematocrit 38.4 % (42.0-52.0); Hemoglobin 12.6 g/dL (14.0-18.0); Mean Corpuscular HGB Conc 32.8 g/dl (32-36); Mean Corpuscular Hemoglobin 31.1 pg (26-34); Mean Corpuscular Volume 94.8 fl (80-100); Mean Platelet Volume 11.3 fl (7.4-10.4); Platelet Count Result 223 k/mm3 (150-375); Red Blood Count 4.05 M/mm3 (4.6-6.20); White Blood Count 7.9 K/mm3 (4.5-10.0)
[2025-03-21 05:33] LABS: Anion Gap 5 mmol/L (4-12); Blood Urea Nitrogen 11 mg/dL (9-20); Calcium 8.5 mg/dL (8.4-10.2); Carbon Dioxide 28 mmol/L (22-30); Chloride 106 mmol/L (98-107); Estimated CRCL calculation 100 ml/min; Estimated Glomerular Filt Rate > 60; Glucose 88 mg/dL (65-110); Potassium 3.6 mmol/L (3.4-5.0); Sodium 139 mmol/L (137-145)
[2025-03-21 05:48] VITALS: BP 149/92; PULSE 75; RESP 14; TEMP 36.7; O2SAT 97
[2025-03-21] MEDS: FAMOTIDINE 20 MG TABLET PO (09:17)
[2025-03-21] MEDS: HYDROcodone/acetaminophen (*CRX) 10-325 MG TABLET 1 TAB PO (09:17)
--- NOTE | 2025-03-21 14:39 | P.DS_ITS ---
DS: Admitting Diagnosis Discharge Date 03/21/2025 Admitting Diagnosis Acute appendicitis, intussusception of appendix DS: Discharge Diagnosis Discharge Diagnosis (1) Acute appendicitis: Qualifiers: Acute appendicitis type: with localized peritonitis Appendicitis abscess presence: without abscess Appendicitis gangrene presence: without gangrene Appendicitis perforation presence: without perforation Qualified Code(s): K35.30 - Acute appendicitis with localized peritonitis, without perforation or gangrene Code(s): K35.80 - Unspecified acute appendicitis Status: Acute (2) Intussusception of appendix: Code(s): K38.8 - Other specified diseases of appendix Status: Acute DS: Summary Hospital Course Reason for hospitalization: Acute appendicitis Hospital Course: This is a 54-year-old man who presented to the emergency department on 03/18/2025 with right lower quadrant abdominal pain. He was noted to have an elevated white blood count and CT showed evidence of acute appendicitis with intussusception of the appendix into the cecum. He underwent hand assisted laparoscopic appendectomy and partial cecectomy by Dr. Arriola on 03/18/2025. He was then returned to the surgical floor postoperatively. His diet and activity were slowly advanced. He started out on clear liquids and was advanced to a full liquid diet on 03/19. He was then advanced to a regular diet on 03/20/2025. Was passing flatus and tolerating the diet. He denied any bloating or nausea or vomiting. His pain was well controlled and he was up ambulating. He was discharged home on 03/21/2025. Pathology was still pending at the time of discharge. Status at Discharge Functional status at discharge: independent ambulation Overall status at discharge: patient is back to baseline Time Spent with Patient Time attestation: Total time spent providing and/or coordinating discharge services: Time spent: Less than 30 minutes Exam 2 Const: General: comfortable and no acute distress Orientation/consciousness: patient oriented x3 Resp: Effort & Inspection: normal respiratory effort Auscultation: clear to auscultation bilaterally Cardio: Rate: regular rate Rhythm: regular rhythm Heart sounds: S1 normal heart sound present and S2 normal heart sound present GI: Inspection: non-distended and incision (Intact with glue, mild bruising at lower incisions) GI Palp: Yes Soft to palpation, No Tenderness to palpation present (GI), No Guarding due to palpation present (GI) and No Rebound tenderness present Percussion: Yes normal to percussion Auscultation: normal bowel sounds DS: Data Data Completed and Pending Pending studies at discharge: Pending at discharge 03/18/25 18:49 Surgical [PTH] Routine Labs on day of discharge: Labs from last 24 hours 03/21/25 04:15 WBC 7.9 RBC 4.05 L Hgb 12.6 L Hct 38.4 L MCV 94.8 MCH 31.1 MCHC 32.8 RDW 13.0 Plt Count 223 MPV 11.3 H Sodium 139 Potassium 3.6 Chloride 106 Carbon Dioxide 28 Anion Gap 5 BUN 11 Creatinine 0.98 Estim Creat Clear Calc 100 Estimated GFR > 60 Glucose 88 Calcium 8.5 Imaging Radiologist's impression: ITS Impressions Abdomen/Pelvis CT 03/18/25 13:02 Impression: Intussusception of the appendix into the base of the cecum. Suggestion of mild wall thickening of the intussuscepted appendix, and concomitant/superimposed early appendicitis is a potential consideration. 7 mm nonobstructing left renal stone. Discharge Plan Discharge Attending physician on discharge: Greyson Arriola Discharging Clinician: Ric Harris Patient Disposition: Home Activity: other - see discharge instructions Diet: regular Wound Care Instructions: other - see discharge instructions Discharge Instructions: * Okay to drive * No lifting greater than 10 lb for the next 6 weeks * May shower, no bathing or soaking underwater for 2 more weeks * Continue regular diet * Call office if increasing abdominal pain, fevers, or problems with incisions Patient Instructions: Antibiotic Form Patient Language: Moldovan Stand Alone Forms: General Discharge Information Follow-up/Referrals: Greyson Arriola MD [Physician] - 2 Weeks UNKNOWN,DOCTOR [Primary Care Provider] - Discharge Medications: New hydrocodone-acetaminophen 5-325 mg tablet 1 tablet PO Q4H PRN (Reason: pain) Qty: 15 0RF Continued lisinopril 20 mg tablet 20 mg PO HS Date of admission: 03/18/25 20:37 Primary Care Provider: UNKNOWN,DOCTOR Admitting Provider: Greyson Arriola Attending physician on admission: Greyson Arriola Condition: Stable
== END 2025-03-21 15:15 | disposition home or self-care (01) | DRG 330 ==
LOC: ANHED 14:07 → ANHSURGERY 14:32 → ANH2MED 03-19 09:47
PROVIDERS: Admitting Provider Surgery; Emergency Provider Physician Assistant; Visit Provider Surgery
PROC: 0DTJ4ZZ Resection of Appendix, Percutaneous Endoscopic Approach (ICD-10-PCS; CPT 44970; principal; 2025-03-18 16:30)
DX: K38.8 Other specified diseases of appendix (principal); K50.90 Crohn's disease, unspecified, without complications; Q43.3 Congenital malformations of intestinal fixation; K35.30 Acute appendicitis with localized peritonitis, without perforation or gangrene; I10 Essential (primary) hypertension; Z72.0 Tobacco use
CPT/HCPCS: 36415; 74177; 80048; 80053; 81003; 83690; 85025; 85027; 88304; 96361; 96365; 96367; 96375; 99285; A9270; J0330; J0692; J1171; J1596; J1650; J1741; J1836; J2003; J2250; J2371; J2405; J2704; J3010; J7030; J7120; Q9967